=== PATIENT | female | born 1990 | race Caucasian/White ===

== ENCOUNTER 2017-06-22 18:11 | Emergency (ER) | payer OTHER ==
[~2017-06-22] VITALS: Ht 154.9 cm; Wt 48.5 kg
[2017-06-22 18:17] VITALS: Ht 154.9 cm; Wt 48.5 kg
[2017-06-22] MEDS ORDERED: GEN15OI1 TOP (18:57)
[2017-06-22] MEDS ORDERED: LIDOCAINE 1% (MDV) 20 ML INJ SC ONE (19:00)
--- NOTE | 2017-06-22 19:00 | ERD ---
ER Documentation Chief Complaint Date/Time DATE: 06/22/17 TIME: 18:58 Chief Complaint right eye bump, c/o pain and redness x2 months rx meds ineffective HPI 26-year-old female complains of a two-month history of a bump on her right upper eyelid. She is used topical antibiotics as well as oral antibiotics but complains of persistent bump. She denies fevers, visual changes, additional symptoms ROS All systems reviewed and are negative except as per history of present illness. Medications Home Meds Active Scripts Gentamicin Sulfate* (Gentamicin Sulfate* Oint) 0.1% - 15 Gm Oint, 1 APPLIC TOP QID for 7 Days, TUB Prov:JAROD STEPHENS MD 06/22/17 Allergies Allergies: Coded Allergies: No Known Drug Allergy (Verified Allergy, Unknown, 06/22/17) PMhx/Soc Medical and Surgical Hx: pt denies Medical Hx, pt denies Surgical Hx Hx Alcohol Use: No Hx Substance Use: No Hx Tobacco Use: No Smoking Status: Never smoker Physical Exam Vitals Vital Signs Date Time Temp Pulse Resp B/P Pulse Ox O2 Delivery O2 Flow Rate FiO2 06/22/17 18:17 99.3 83 18 115/57 98 Physical Exam Const: [] Letter, [id number] Head: Atraumatic Eyes: Normal Conjunctiva. Normal sclera eyes Nemo normal anterior chambers. There is approximately 3-4 mm chronic appearing pustule on the right upper eyelid. There is no significant erythema no periorbital swelling or proptosis ENT: Normal External Ears, Nose and Mouth. Neck: Full range of motion..~ No meningismus. Resp: Clear to auscultation bilaterally Cardio: Regular rate and rhythm, no murmurs Abd: Soft, non tender, non distended. Normal bowel sounds Skin: No petechiae or rashes Back: No midline or flank tenderness Ext: No cyanosis, or edema Neur: Awake and alert Psych: Normal Mood and Affect Results 24 hrs Current Medications Medications (Trade) Dose Ordered Sig/Paulie Route PRN Reason Start Time Stop Time Status Last Admin Dose Admin Lidocaine (Xylocaine 1% (Mdv) 20 ml) 20 ml ONCE ONCE SC 06/22/17 19:00 06/22/17 19:01 Procedures/MDM Patient presents with a lingering upper eyelid external stye without evidence of orbital or periorbital cellulitis or threats to vision. Seizure non-scant amount of lidocaine was used for local infiltration. An 18- gauge needle was used to unroofed the pustule. Pus was expressed. Wound was dressed with topical antibiotic and hemostasis was obtained with gentle pressure. Patient was discharged home with gentamicin ophthalmic ointment further observation. Patient was advised to avoid eye makeup and follow-up with ophthalmology for persistent symptoms curettage for persistence or recurrence. She should otherwise return sooner for worsening redness, fevers, new worsening symptoms. Departure Diagnosis: Primary Impression: Hordeolum external Laterality: right Eyelid: upper Qualified Code: H00.011 - Hordeolum externum of right upper eyelid Condition: Stable Patient Instructions: Sty Referrals: [facility] Hours: Mon - Fri 9:00 AM - 5:00 PM Additional Instructions: See ophthalmology for persistent symptoms. Recheck otherwise for fevers, worsening redness, new symptoms. JAROD STEPHENS MD Jun 22, 2017 19:00
== END 2017-06-22 19:15 | disposition home or self-care (01) ==
LOC: FTE 18:11
DX: H00.011 Hordeolum externum right upper eyelid (principal)
CPT/HCPCS: 67700; Z7502; Z7610

== ENCOUNTER 2017-06-24 19:12 | Emergency (ER) | payer OTHER ==
[~2017-06-24] VITALS: Ht 154.9 cm; Wt 48.5 kg
[~2017-06-24 19:12] MED LIST: GEN15OI1 TOP
[2017-06-24 20:19] VITALS: Ht 154.9 cm; Wt 48.5 kg
--- NOTE | 2017-06-24 21:02 | ERD ---
ER Documentation Chief Complaint Date/Time DATE: 06/24/17 TIME: 20:56 Chief Complaint s/p R eye stye surgery on thursday wants to make sure eye lid swollen HPI This 26-year-old female presents to emergency department for reevaluation of right upper eyelid stye. Patient reports that she was here Thursday and had the stye scraped by Dr. Justine zaman. Patient reports that she no longer has pain, only scant discharge noted the other day none now. Denies change in vision. Patient reports that she still has swelling on her upper lid is here for reevaluation. ROS All systems reviewed and are negative except as per history of present illness. Medications Home Meds Active Scripts Gentamicin Sulfate* (Gentamicin Sulfate* Oint) 0.1% - 15 Gm Oint, 1 APPLIC TOP QID for 7 Days, TUB Prov:JAROD STEPHENS MD 06/22/17 Allergies Allergies: Coded Allergies: No Known Drug Allergy (Verified Allergy, Unknown, 06/22/17) PMhx/Soc Medical and Surgical Hx: pt denies Medical Hx, pt denies Surgical Hx Hx Alcohol Use: No Hx Substance Use: No Hx Tobacco Use: No Smoking Status: Never smoker Physical Exam Vitals Vital Signs Date Time Temp Pulse Resp B/P Pulse Ox O2 Delivery O2 Flow Rate FiO2 06/24/17 20:19 98.2 86 18 110/59 96 Vitals stable, triage notes reviewed Physical Exam Const: Well-appearing, well-hydrated, no acute distress Head: Eyes: Right upper eyelid presents with a 0.5 cm cm x 0.3 cm soft papule, patient is missing eyelashes, there is no foreign body under eyelid, there is no discharge expressed when palpated. There is no pain during exam. Bilateral conjunctiva are clear, pupils are equal round reactive to light and accommodation bilaterally. ENT: Neck: Resp: Cardio: Abd: Skin: Back: Ext: Neur: Awake and alert Psych: Normal Mood and Affect Procedures/MDM This 26-year-old female presents to emergency department for reevaluation of a stye. Patient was seen and treated here 06/22/2017 with a scraping and antibiotic treatment. Patient is here for reassessment. Patient has no symptoms of worsening of infection, heart aluminum, periorbital cellulitis. Patient instructed to continue current medication and plan of care, follow-up with primary care physician for referral to ophthalmology if symptoms recur. Return to emergency department for eyelid swelling, pain or fever. Patient is stable with no new complaints during ER course, clinically there is no current evidence to suggest meningitis, sepsis, acute abdomen, acute coronary syndromes , pulmonary embolism or any other emergent condition appearing to require further evaluation or hospitalization. I feel the patient is stable for discharge at this time. I have discussed results, examination findings, the treatment plan with the patient and family present prior to discharge. Indications for emergent reevaluation, side effects of medication were also discussed. All questions were answered. Patient verbalizes understanding and agrees with plan of care. Departure Diagnosis: Primary Impression: Encounter for evaluation of wound Condition: Good Patient Instructions: Sty Additional Instructions: Thank you for for coming to [facility] [place] for your care today. Please ask your nurse or provider if you have questions about your care today and do not leave until all your questions have been answered. Please use any medications given as directed and follow-up with your doctor (or the doctor you were referred to) in the next 2-3 days. If you do not have a primary care doctor you may follow up at the community [facility] - [place] (listed below). You may also use motrin and tylenol as needed for fever and/or pain unless instructed otherwise by your provider or nurse. Indications for more urgent follow-up have been discussed, but you may return to the Emergency Department at ANY time for any worrisome or worsening symptoms. If you have abdominal pain, please know that no test or exam you received is perfect and you should follow up within 8 hours for continued pain. If you had any imaging studies today, such as an X-Ray or CT Scan, these studies will be reviewed later by a radiologist. You will be called if there are important findings that were not identified today, so make sure the contact information you provided at registration is correct. If you received any narcotic pain control medicine today, such as Vicodin, Morphine or Dilaudid, your coordination and judgment may be affected for a number of hours. Please do not drive or operate heavy machinery, and you may want someone to assist you at home. If you were given a prescription for narcotic medication, be aware that it is very addictive- use sparingly and only if necessary. LORNE ROBLEDO Jun 24, 2017 20:59
== END 2017-06-24 21:03 | disposition home or self-care (01) ==
LOC: FTE 19:12
DX: Z48.01 Encounter for change or removal of surgical wound dressing (principal)
CPT/HCPCS: 99281

== ENCOUNTER 2018-09-07 15:17 | Emergency (ER) | END 2018-09-07 19:03 | disposition home or self-care (01) ==